=== PATIENT | female | born 2000 | race Caucasian/White ===

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

== ENCOUNTER 2020-05-10 16:36 | Emergency (ER) | payer OTHER, MEDICAID, SELFPAY ==
[2020-05-10 16:51] VITALS: BP 135/68; PULSE 85; RESP 15; TEMP 36.9; O2SAT 99; BMI 19.0
--- NOTE | 2020-05-10 17:00 | PC.NURSE ---
Pt sitting in bed, appears very itchy. Itching at multiple sites, however she states her right shoulder and armpits are the worst for her. Rash noted all over body. States she completed 3 weeks topical treatment from [facility] in February and that it helped make the rash less itchy. She presents today because she developed lots of new itchy sites on left arm and wrist, arm turned red, and she felt jittery.
[2020-05-10 17:53] VITALS: BP 119/68; PULSE 68; RESP 14; O2SAT 100
--- NOTE | 2020-05-10 19:23 | ED.SKABFB ---
HPI - Skin/Abscess/Foreign Bdy <MARIA ELENA Lockhart - Last Filed: 05/10/20 19:27> General Chief complaint: Skin/Abscess/Foreign Body Stated complaint: Itchy Rash All Over Time Seen by Provider: 05/10/20 16:43 Source: patient Mode of arrival: Ambulatory Limitations: no limitations History of Present Illness HPI narrative: The patient is a 19 year female nonsmoker with history of a rash for the past 4 months who presents for chief complaint of rash. She states that she has had an itchy rash ongoing all over her body for the past 4-5 months. She has been treated for scabies 3 times. She has been referred to dermatology for a punch biopsy, but has not been able to get in with them. She has been using clobetasol foam. She states she has been on steroids which has improved her rash. She states that she picked up a prescription of hydroxyzine earlier today, but has not tried it. She denies any fevers nausea vomiting or diarrhea. Patient states that she is not vaccinated. She states that she came up for a 2nd opinion regarding the rash as she is not been able to get in to Dermatology yet. Related Data Home Medications Medication Instructions Recorded Confirmed medroxyprogesterone [Depo-Provera] 400 mg IM X1 #0 12/27/16 03/31/20 Previous Rx's Medication Instructions Recorded albuterol sulfate [Ventolin HFA] 2 puff INH Q4HP PRN #1 inh 12/27/16 albuterol sulfate 3 ml INH Q4HP PRN #1 box 09/04/17 fluticasone propionate [Flovent 2 puff INH QDAY #1 inh 12/04/17 HFA] clobetasol 0.05 % topical cream 1 applictn TOP DAILY #60 gram 03/05/20 clobetasol 0.05 % topical foam 1 applictn TOP DAILY #100 gram 03/31/20 hydroxyzine HCl 25 mg tablet 25 mg PO BID PRN 30 Days #60 tab 05/10/20 prednisone 20 mg PO DAILY 5 Days #5 tab 05/10/20 Allergies Allergy/AdvReac Type Severity Reaction Status Date / Time No Known Drug Allergies Allergy Verified 03/31/20 09:28 Review of Systems <MARIA ELENA Lockhart - Last Filed: 05/10/20 19:27> Review of Systems Narrative: GENERAL: Denies chills, fatigue, malaise, fever, sweats. HEENT: Denies sinus pain, ear pain, sore throat, difficulty swallowing, dizziness. RESPIRATORY: Denies dyspnea, cough, wheezing, hemoptysis, sputum. CARDIOVASCULAR: Denies chest pain, palpitations, orthopnea, edema, GASTROINTESTINAL: Denies nausea, vomiting, abdominal pain, diarrhea, constipation, melena. : Denies dysuria, frequency, incontinence, hematuria, urinary retention. MUSCULOSKELETAL: denies weakness, joint pain, or bony pain SKIN: See HPI NEUROLOGIC: Denies weakness, headache, numbness, change in speech, confusion, seizures, incoordination. PSYCHIATRIC: No concerning psychosocial issues. 12 point review of systems is negative except for those stated above Patient History <NESSA Lockhart - Last Filed: 05/10/20 19:27> Social History Smoking Status: Never smoker Smoking Status: Never smoker alcohol intake frequency: a few times a month Substance Use Type: does not use Exam <MARIA ELENA Lockhart - Last Filed: 05/10/20 19:27> Narrative Exam Narrative: GENERAL: This is a well-nourished, well-developed patient, in no acute distress HEAD: Atraumatic. Normocephalic. No temporal or scalp tenderness. EYES: Pupils equal round and reactive. Extraocular motions intact. No scleral icterus. No injection or drainage. ENT: Nose without bleeding, purulent drainage or septal hematoma. Airway patent. NECK: Trachea midline. No JVD or lymphadenopathy. Supple, nontender, no meningeal signs. CARDIOVASCULAR: Regular rate and rhythm RESPIRATORY: No cough. No increased respiratory effort. No accessory muscle use. EXTREMITIES: No clubbing, cyanosis, or edema. No joint tenderness, effusion, or edema noted. BACK: Nontender without deformity or crepitance. No flank tenderness. NEURO: AOx3. SKIN: Diffuse, dry eczematous Rash on hands and feet. Small punctate noted extending up arms, legs, abdomen. No vesicles. No pustules. Initial Vital Signs Initial Vital Signs: Vital Signs Temperature 98.4 F 05/10/20 16:51 Pulse Rate 85 05/10/20 16:51 Respiratory Rate 15 05/10/20 16:51 Blood Pressure 135/68 05/10/20 16:51 Pulse Oximetry 99 05/10/20 16:51 <Michael Thurston MD - Last Filed: 05/11/20 19:47> Initial Vital Signs Initial Vital Signs: Vital Signs Temperature 98.4 F 05/10/20 16:51 Pulse Rate 85 05/10/20 16:51 Respiratory Rate 15 05/10/20 16:51 Blood Pressure 135/68 05/10/20 16:51 Pulse Oximetry 99 05/10/20 16:51 Course <MARIA ELENA Lockhart - Last Filed: 05/10/20 19:27> Vital Signs Vital signs: Vital Signs - 8 hr 05/10/20 16:51 05/10/20 17:53 Temperature 98.4 F Pulse Rate 85 68 Respiratory Rate 15 14 Blood Pressure 135/68 119/68 Pulse Oximetry 99 100 <Michael Thurston MD - Last Filed: 05/11/20 19:47> Vital Signs Vital signs: Vital Signs - 8 hr 05/10/20 16:51 05/10/20 17:53 Temperature 98.4 F Pulse Rate 85 68 Respiratory Rate 15 14 Blood Pressure 135/68 119/68 Pulse Oximetry 99 100 MDM - Skin/Abscess/Foreign Bdy <MARIA ELENA Lockhart - Last Filed: 05/10/20 19:27> MDM Narrative Medical decision making narrative: The patient is a 19-year-old female who presents with a chief complaint of a rash. She has had multiple visits to her primary care provider and been referred to dermatology. At this point it does appear eczematous, I do think that she needs to follow up with Dermatology I discussed this with her. I did place her on a burst of steroids for a few days. Encouraged her to try the hydroxyzine that she picked up today, but has not tried yet. Discussed coming back to the emergency department for any acute concerns. Encourage follow-up with primary care provider. Patient has no questions or concerns upon discharge and states understanding of return precautions as well as follow-up care. Discharge Plan Departure Patient Disposition: Home Clinical Impression: Rash and nonspecific skin eruption Discharge Date/Time: 05/10/20 18:10 Instructions: DI for Rash Activity Restrictions/Additional Instructions: Thank you for trusting with your care today I sent a steroid prescription to [email or web address]. As discussed please follow-up with primary care provider please follow-up with dermatology Please come back to the emergency department for any acute concerns. Prescriptions: New prednisone 20 mg tablet 20 mg PO DAILY 5 Days Qty: 5 RF: 0 No Action clobetasol 0.05 % cream 1 applictn TOP DAILY Qty: 60 RF: 1 clobetasol 0.05 % foam 1 applictn TOP DAILY Qty: 100 RF: 1 medroxyprogesterone [Depo-Provera] 400 MG/1 ML suspension 400 mg IM X1 Qty: 0 RF: 0 albuterol sulfate [Ventolin HFA] 90 MCG/PUFF HFA aerosol inhaler 2 puff INH Q4HP PRNQty: 1 RF: 2 albuterol sulfate 2.5 MG/3 ML solution for nebulization 3 ml INH Q4HP PRNQty: 1 RF: 4 fluticasone propionate [Flovent HFA] 12 GM HFA aerosol inhaler 2 puff INH QDAY Qty: 1 RF: 12 hydroxyzine HCl 25 mg tablet 25 mg PO BID PRN (Reason: itching) 30 Days Qty: 60 RF: 0 Referrals: Graham Massey MD [Primary Care Provider] -
== END 2020-05-10 18:10 | disposition home or self-care (01) ==
PROVIDERS: Emergency Provider Nurse Practitioner Family; Family Provider Family Medicine; PCP Family Medicine
DX: R21 Rash and other nonspecific skin eruption (principal)
CPT/HCPCS: 99281

== ENCOUNTER → 2020-06-15 09:38 | Outpatient (CLI) | payer OTHER, MEDICAID, SELFPAY ==
[2020-06-16 11:22] LABS: Varicella IgG Antibody <135 index (Immune >165)
[2020-06-17 20:36] LABS: QuantiFERON Mitogen Value 9.94 IU/mL (.); QuantiFERON Nil Value 0.11 IU/mL (.); QuantiFERON TB Gold Plus Negative (Negative); QuantiFERON TB1 Ag Value 0.11 IU/mL (.)
== END ==
PROVIDERS: Family Provider Family Medicine; PCP Family Medicine; Referring Provider Family Medicine; Visit Provider Family Medicine
DX: Z01.84 Encounter for antibody response examination (principal)
CPT/HCPCS: 36415; 86480; 86787

== ENCOUNTER 2021-05-15 09:40 | Emergency (ER) | payer OTHER, MEDICAID, SELFPAY ==
[2021-05-15 09:56] VITALS: BP 105/66; PULSE 107; RESP 20; TEMP 36.7; O2SAT 98; BMI 19.7
--- NOTE | 2021-05-15 10:01 | DI.RAD.S_ITS ---
PROCEDURE: XR FOOT LT MIN 3V INDICATIONS: fall / foot pain TECHNIQUE: 3 views of the foot were acquired. COMPARISON: [facility], , FOOT 3V RIGHT, 03/26/2013, 18:27. FINDINGS: Bones: No fractures or dislocations. No suspicious bony lesions. Soft tissues: No tibiotalar joint effusion. Achilles tendon appears normal. IMPRESSION: No acute plain film abnormality is seen. Dictated by: Sathish Aguirre M.D. on 05/15/2021 at 9:17 Approved by: Sathish Aguirre M.D. on 05/15/2021 at 9:18
--- NOTE | 2021-05-15 10:52 | ED.LOWEXIN ---
HPI - Extremity Injury (Lower) General Chief Complaint: Extremity Injury, Lower Stated Complaint: fell and hurt left foot Time Seen by Provider: 05/15/21 10:24 Source: patient and family Mode of arrival: Family Vehicle Limitations: no limitations History of Present Illness HPI Narrative: Patient is a 20-year-old female presents with left foot pain and bruising. She says she was playing tag with boyfriends nephew when she tripped and fell yesterday. She is able to ambulate. Related Data Home Medications Medication Instructions Recorded Confirmed medroxyprogesterone 400 mg/mL 400 mg IM X1 #0 12/27/16 01/05/21 intramuscular suspension (Depo-Provera) Previous Rx's Medication Instructions Recorded albuterol sulfate 90 mcg/actuation 2 puff INH Q4HP PRN #1 inh 12/27/16 aerosol inhaler (Ventolin HFA) albuterol sulfate 3 ml INH Q4HP PRN #1 box 09/04/17 fluticasone propionate 110 2 puff INH QDAY #1 inh 12/04/17 mcg/actuation HFA aerosol inhaler (Flovent HFA) clobetasol 0.05 % topical foam 1 applictn TOP DAILY #100 gram 03/31/20 Allergies Allergy/AdvReac Type Severity Reaction Status Date / Time No Known Drug Allergies Allergy Verified 05/15/21 09:56 Review of Systems Review of Systems Narrative: GENERAL: Denies chills,fever HEENT: Denies throat pain RESPIRATORY: Denies dyspnea, cough, wheezing CARDIOVASCULAR: Denies chest pain, palpitations GASTROINTESTINAL: Denies nausea, vomiting MUSCULOSKELETAL: She see HPI SKIN: No rash, no laceration, no pruritus NEUROLOGIC: Denies weakness, dizziness, headache, numbness 8 point review of systems is negative except for those stated above and HPI Patient History Medical History (Updated 05/15/21 @ 10:58 by Hannah Hines DO) Cyst of ear canal Social History Smoking Status: Never smoker Smoking Status: Never smoker alcohol intake frequency: 0-2 drinks per day Substance Use Type: does not use Exam Initial Vital Signs Initial Vital Signs: Vital Signs Temperature 98.0 F 05/15/21 09:56 Pulse Rate 107 H 05/15/21 09:56 Respiratory Rate 20 05/15/21 09:56 Blood Pressure 105/66 05/15/21 09:56 Pulse Oximetry 98 07/10/21 09:56 GENERAL: Well-appearing, well-nourished and in no acute distress. CARDIOVASCULAR: peripheral pulses in tact, cap refill <2 sec RESPIRATORY: No respiratory distress, speaks in full sentences without difficulty EXTREMITIES: Normal range of motion, no clubbing or edema. Neurovascularly intact Left foot mild contusion pain over 1st metatarsal NEUROLOGICAL: Cranial nerves II through XII grossly intact. Normal gait and speech. SKIN: Warm, dry, no petechiae, no rashes or lesions. Course Orders Ordered: ED Orders 05/15/21 10:01 XR foot LT min 3V Stat Vital Signs Vital signs: Vital Signs - 8 hr 05/15/21 09:56 05/15/21 11:08 Temperature 98.0 F Pulse Rate 107 H 86 Respiratory Rate 20 16 Blood Pressure 105/66 107/58 L Pulse Oximetry 98 99 MDM - Extremity Injury (Lower) Imaging Data Extremity x-ray #1: Radiologist's Impression: PROCEDURE: XR FOOT LT MIN 3V INDICATIONS: fall / foot pain TECHNIQUE: 3 views of the foot were acquired. COMPARISON: [facility], , FOOT 3V RIGHT, 03/26/2013, 18:27. FINDINGS: Bones: No fractures or dislocations. No suspicious bony lesions. Soft tissues: No tibiotalar joint effusion. Achilles tendon appears normal. IMPRESSION: No acute plain film abnormality is seen. Dictated by: Sathish Aguirre M.D. on 05/15/2021 at 9:17 Discharge Plan Departure Patient Disposition: Home Clinical Impression: Sprain of foot, left Qualifiers: Encounter type: initial encounter Qualified Code(s): S93.602A - Unspecified sprain of left foot, initial encounter Instructions: DI for Foot Sprain Activity Restrictions/Additional Instructions: *You have been diagnosed with left foot sprain *What to do: Increase activity as tolerated. This should start to feel better in a few days elevate I *Continue to take medications as directed Ibuprofen 600 mg every 6-8 hours if needed for [id number] pain *Follow up with your primary care provider in 2-3 days *Return to ER if you should have increasing pain, weakness numbness or tingling or any new, worsening or concerning symptoms Prescriptions: No Action clobetasol 0.05 % foam 1 applictn TOP DAILY Qty: 100 RF: 1 medroxyprogesterone [Depo-Provera] 400 MG/1 ML suspension 400 mg IM X1 Qty: 0 RF: 0 albuterol sulfate [Ventolin HFA] 90 MCG/PUFF HFA aerosol inhaler 2 puff INH Q4HP PRNQty: 1 RF: 2 albuterol sulfate 2.5 MG/3 ML solution for nebulization 3 ml INH Q4HP PRNQty: 1 RF: 4 fluticasone propionate [Flovent HFA] 12 GM HFA aerosol inhaler 2 puff INH QDAY Qty: 1 RF: 12 Referrals: Graham Massey MD [Primary Care Provider] -
[2021-05-15 11:08] VITALS: BP 107/58; PULSE 86; RESP 16; O2SAT 99
== END 2021-05-15 11:09 | disposition home or self-care (01) ==
PROVIDERS: Emergency Provider Emergency Medicine; Family Provider Family Medicine; PCP Family Medicine
DX: S93.602A Unspecified sprain of left foot, initial encounter (principal); W01.0XXA Fall on same level from slipping, tripping and stumbling without subsequent striking against object, initial encounter
CPT/HCPCS: 73630; 99283

== ENCOUNTER → 2021-08-27 08:10 | Outpatient (CLI) | payer OTHER, MEDICAID, SELFPAY ==
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
== END ==
PROVIDERS: Family Provider Family Medicine; PCP Family Medicine; Referring Provider Physician Assistant; Visit Provider Physician Assistant
DX: M79.641 Pain in right hand (principal)
CPT/HCPCS: 73130

== ENCOUNTER → 2021-10-07 10:17 | Outpatient (CLI) | payer OTHER, MEDICAID, SELFPAY ==
[2021-10-07 12:24] LABS: Add Manual Diff / Slide Review NO; Basophils Absolute Auto 100 /uL (0-100); Basophils Percent Auto 1.1 % (0-2); Eosinophils Absolute Auto 300 /uL (0-450); Eosinophils Percent Auto 4.5 % (2-4); Hematocrit 39.6 % (36-46); Hemoglobin 13.6 g/dL (12.0-16.0); Lymphocytes Absolute Auto 1900 /uL (1100-4500); Lymphocytes Percent Auto 33.6 % (25-40); Mean Corpuscular HGB Conc 34.5 % (30-36); Mean Corpuscular Hemoglobin 31.3 PG (26-34); Mean Corpuscular Volume 90.9 fL (80-100); Monocytes Absolute Auto 500 /uL (0-900); Monocytes Percent Auto 9.2 % (3-14); Neutrophils Absolute Auto 3000 /uL (1500-7000); Neutrophils Percent Auto 51.6 % (50-75); Platelet Count 255 X10^3/uL (150-400); Red Blood Cell Count 4.35 X10^6/uL (4.0-5.2); Red Cell Distribution Width 12.9 % (11.6-14.8); White Blood Cell Count 5.7 X10^3/uL (4.5-11.0)
[2021-10-07 13:12] LABS: Ferritin 15 ng/mL (6-137)
== END ==
PROVIDERS: Family Provider Family Medicine; PCP Family Medicine; Referring Provider Family Medicine; Visit Provider Family Medicine
DX: Z14.8 Genetic carrier of other disease (principal)
CPT/HCPCS: 36415; 82728; 85025

== ENCOUNTER → 2022-07-18 09:19 | Outpatient (CLI) | payer OTHER, MEDICAID, SELFPAY ==
[2022-07-18 12:17] LABS: TSH w/ Reflex to FT4 2.39 uIU/mL (0.47-4.68)
== END ==
PROVIDERS: Family Provider Family Medicine; PCP Family Medicine; Referring Provider Family Medicine; Visit Provider Family Medicine
DX: R53.83 Other fatigue (principal)
CPT/HCPCS: 36415; 84443

== ENCOUNTER → 2022-09-09 14:59 | Outpatient (CLI) | payer OTHER, MEDICAID, SELFPAY | PROVIDERS: Family Provider Family Medicine; PCP Family Medicine; Referring Provider Internal Medicine; Visit Provider Internal Medicine | DX: Z23 Encounter for immunization (principal) | CPT/HCPCS: 90471; 90686 ==

== ENCOUNTER → 2023-07-21 16:18 | Outpatient (CLI) | payer OTHER, SELFPAY ==
[2023-07-21 17:06] LABS: Influenza A - CEPHEID Flu A NEGATIVE (NEGATIVE); Influenza B - CEPHEID Flu B NEGATIVE (NEGATIVE); Respiratory Syncytial Virus Negative (Negative)
[2023-07-21 17:19] LABS: COVID-19 CEPHEID 4-PLEX PCR Negative (Negative)
== END ==
PROVIDERS: Family Provider Family Medicine; PCP Family Medicine; Visit Provider Family Medicine
DX: J34.89 Other specified disorders of nose and nasal sinuses (principal); J02.9 Acute pharyngitis, unspecified; R51.9 Headache, unspecified
CPT/HCPCS: 0241U

== ENCOUNTER → 2023-08-09 | Outpatient (CLI) | payer OTHER, SELFPAY | PROVIDERS: Family Provider Family Medicine; PCP Family Medicine; Referring Provider Family Medicine; Visit Provider Family Medicine | DX: Z23 Encounter for immunization (principal) | CPT/HCPCS: 90471; 90686 ==

== ENCOUNTER → 2023-09-05 16:11 | Outpatient (CLI) | payer OTHER, SELFPAY ==
--- NOTE | 2023-09-05 16:13 | DI.US.S_ITS ---
PROCEDURE: US PELVIC COMPLETE INDICATIONS: dyspareunia TECHNIQUE: Real-time scanning was performed of the pelvic organs, with image documentation. Additional endovaginal scanning was necessary due to incomplete visualization of the adnexal and endometrial structures by transabdominal scanning. COMPARISON: None. FINDINGS: Uterus: Uterus is retroverted and normal in size at 6.6 x 4.0 x 4.9 cm. The myometrium is 6. The endometrium measures 6 mm combined thickness. Intrauterine device in expected position. Ovaries: The right ovary measures 3.6 x 2.1 x 2.4 cm, with a calculated ovarian volume of 9.4 cc. The left ovary measures 2.9 x 1.3 x 1.4 cm, with a calculated ovarian volume of 2.7 cc. The ovaries have a normal sonographic appearance. Less than 12 follicles can be seen in each ovary. No adnexal masses are seen. Other: No pathologic free abdominal or pelvic fluid. IMPRESSION: 1. No cause for patient's symptoms is identified. 2. Intrauterine device in expected position. 3. Otherwise, normal pelvic ultrasound. We strive to produce accurate, complete, and clear reports of imaging services. To assist us in improving patient care, this report was composed using standard report templates and voice recognition software. Therefore, it may contain abnormal punctuation, insertions and/or omissions. Occasional wrong-word or sound-alike substitutions may occur. Though we review the report and make efforts to correct it, we do recommend that the report be read carefully in proper context to recognize any text inaccuracies. Dictated by: eRed Al M.D. on 09/05/2023 at 16:43 Approved by: Reed Al M.D. on 09/05/2023 at 16:45
== END ==
PROVIDERS: Family Provider Family Medicine; PCP Family Medicine; Referring Provider Family Medicine; Visit Provider Family Medicine
DX: N94.10 Unspecified dyspareunia (principal); Z97.5 Presence of (intrauterine) contraceptive device
CPT/HCPCS: 76830; 76856; 93976

== ENCOUNTER → 2024-04-23 14:36 | Outpatient (CLI) | payer OTHER, SELFPAY | PROVIDERS: Family Provider Family Medicine; PCP Family Medicine; Referring Provider Family Medicine; Visit Provider Family Medicine | DX: K90.41 Non-celiac gluten sensitivity (principal); R10.9 Unspecified abdominal pain | CPT/HCPCS: 36415; 82784; 83516 ==

== ENCOUNTER → 2024-06-06 15:59 | Outpatient (CLI) | payer OTHER, SELFPAY ==
--- NOTE | 2024-06-06 16:00 | DI.US.S_ITS ---
PROCEDURE: US PELVIC LIMITED INDICATIONS: Assess IUD placement, cramping/pain TECHNIQUE: Real-time transabdominal scanning was performed of the pelvic organs, with image documentation. COMPARISON: None. FINDINGS: Uterus: Uterus is anteverted and normal in size at 9.3 x 3.9 x 5.0 cm. The myometrium is homogeneous. There is an IUD in an appropriate position. Trace amount of free fluid within the endometrium and cervix. Ovaries: The right ovary measures 6.8 x 4.6 cm 7.7 cm, with a calculated ovarian volume of 127 cc. The left ovary measures 1.7 x 1.9 x 2.7 cm, with a calculated ovarian volume of 4.6 cc. The left ovary has a normal sonographic appearance. Within the medial aspect of the right ovary there is a 6.2 x 4.2 x 5.0 cm cyst. Within the lateral aspect of the right ovary there is a 6.4 x 4.4 x 2.2 cm cyst. Less than 12 follicles can be seen in each ovary. Other: Small amount free fluid within the pelvis. IMPRESSION: 1. Normally placed IUD. 2. There are 2 cysts within the right ovary that measure approximately 6.2 cm since 6.4 cm. These can be followed up in a year to ensure stability and/or resolution. 3. Small amount of free fluid in the pelvis. Dictated by: Alejandro Zelaya M.D. on 06/07/2024 at 10:35 Approved by: Alejandro Zelaya M.D. on 06/07/2024 at 10:47
== END ==
PROVIDERS: Family Provider Family Medicine; PCP Family Medicine; Referring Provider Family Medicine; Visit Provider Family Medicine
DX: N83.201 Unspecified ovarian cyst, right side (principal); R10.2 Pelvic and perineal pain; Z97.5 Presence of (intrauterine) contraceptive device
CPT/HCPCS: 76857

== ENCOUNTER → 2024-06-10 12:30 | Outpatient (CLI) | payer OTHER, SELFPAY ==
[2024-06-10 18:21] LABS: HCG Quantitative /Beta subunit < 2.39 mIU/mL
== END ==
LOC: LAB 12:31
PROVIDERS: Family Provider Family Medicine; PCP Family Medicine; Referring Provider Student in an Organized Health Care Education/Training Program; Visit Provider Student in an Organized Health Care Education/Training Program
DX: Z34.90 Encounter for supervision of normal pregnancy, unspecified, unspecified trimester (principal)
CPT/HCPCS: 36415; 84702

== ENCOUNTER → 2024-09-18 10:37 | Outpatient (CLI) | payer OTHER, SELFPAY ==
[2024-09-18 11:02] LABS: Add Manual Diff / Slide Review NO; Basophils Absolute Auto 100 /uL (0-100); Basophils Percent Auto 0.9 % (0-2); Eosinophils Absolute Auto 200 /uL (0-450); Eosinophils Percent Auto 3.1 % (2-4); Hematocrit 40.5 % (36-46); Hemoglobin 13.9 g/dL (12.0-16.0); Lymphocytes Absolute Auto 2400 /uL (1100-4500); Lymphocytes Percent Auto 32.6 % (25-40); Mean Corpuscular HGB Conc 34.5 % (30-36); Mean Corpuscular Hemoglobin 32.4 PG (26-34); Mean Corpuscular Volume 93.9 fL (80-100); Monocytes Absolute Auto 800 /uL (0-900); Monocytes Percent Auto 10.2 % (3-14); Neutrophils Absolute Auto 3900 /uL (1500-7000); Neutrophils Percent Auto 53.2 % (50-75); Platelet Count 237 X10^3/uL (150-400); Red Blood Cell Count 4.31 X10^6/uL (4.0-5.2); Red Cell Distribution Width 13.2 % (11.6-14.8); White Blood Cell Count 7.4 X10^3/uL (4.5-11.0)
[2024-09-18 11:28] LABS: Alanine Aminotransferase 16 IU/L (<35); Albumin 4.3 g/dL (3.5-5.0); Albumin Globulin Ratio 1.8 (1.0-2.8); Alkaline Phosphatase 25 U/L (38-126); Aspartate Aminotransferase 25 IU/L (14-36); BUN Creatinine Ratio 14.5 (6-22); Bilirubin Total 0.6 mg/dL (0.2-1.3); Blood Urea Nitrogen 10 mg/dL (7-17); Carbon Dioxide 25 mmol/L (22-32); Chloride 104 mmol/L (98-107); Estimated Glomerular Filt Rate > 60 mL/min (>60); Globulin 2.4 g/dL (1.7-4.1); Glucose 83 mg/dL (70-100); HEMOLYSIS < 15 (0-50); Potassium 3.9 mmol/L (3.4-5.1); Sodium 137 mmol/L (137-145); Total Protein 6.7 g/dL (6.3-8.2)
[2024-09-18 11:58] LABS: TSH w/ Reflex to FT4 2.78 uIU/mL (0.47-4.68)
== END ==
PROVIDERS: Family Provider Family Medicine; PCP Family Medicine; Referring Provider Psychiatry & Neurology Psychiatry; Visit Provider Psychiatry & Neurology Psychiatry
DX: F32.A Depression, unspecified (principal); F41.9 Anxiety disorder, unspecified
CPT/HCPCS: 36415; 80053; 84443; 85025